=== PATIENT | male | born 1950 | race Caucasian/White ===

== ENCOUNTER → 2021-07-03 | Day surgery (SDC) | payer MEDICARE, MEDICAID ==
[2021-07-03] MEDS: Lidocaine 1% 30 ML SDV INJECT ONE ×2 (12:07)
[2021-07-03 13:08] VITALS: BP 143/77; PULSE 59
== END ==
LOC: CC.SDS 10:48
PROVIDERS: ATTEND Family Medicine
DX: I83.812 Varicose veins of left lower extremity with pain (principal); E78.5 Hyperlipidemia, unspecified; B18.2 Chronic viral hepatitis C; N18.30 Chronic kidney disease, stage 3 unspecified; I12.9 Hypertensive chronic kidney disease with stage 1 through stage 4 chronic kidney disease, or unspecified chronic kidney disease; Z79.82 Long term (current) use of aspirin; Z79.899 Other long term (current) drug therapy

== ENCOUNTER 2021-07-25 21:23 | Inpatient (IN) | payer MEDICARE, MEDICAID ==
[2021-07-25] MEDS ORDERED: Acetaminophen 500 MG Tab PO ONE (21:50)
[2021-07-25] MEDS ORDERED: Sodium Chloride 0.9% 1,000 ML IV SCH (22:00)
[2021-07-25 22:06] LABS: CHLORIDE,CL 102 mEq/L (98-106); SODIUM,NA 139 mEq/L (136-145)
[2021-07-26] MEDS ORDERED: Enoxaparin 40 MG/0.4 ML Syringe SUBCUT SCH (00:30)
[2021-07-26] MEDS ORDERED: REMDESIVIR 200 MG in Sodium Chloride 0.9% 250 ML IV ONE (00:46)
[2021-07-26] MEDS ORDERED: Metoprolol Tartrate 5 MG/5 ML SDV IVPUSH ONE (01:10)
[2021-07-26] MEDS: Albuterol/Ipratropium 3.0-0.5 MG/3 ML Neb Soln NEB SCH ×6 (01:24→21:07)
[2021-07-26] MEDS: Ibuprofen 200 MG Tab PO PRN (01:34)
[2021-07-26] MEDS: Dexamethasone 4 MG Tab PO SCH ×2 (01:34→07:46)
[2021-07-26] MEDS: Pantoprazole 40 MG Tab.CR PO SCH (06:23)
[2021-07-26] MEDS: Multivitamin Tab PO SCH (07:45)
[2021-07-26] MEDS: Gabapentin 300 MG Cap PO SCH ×3 (07:45→21:13)
[2021-07-26] MEDS: Aspirin 325 MG Tab.EC PO SCH (07:46)
[2021-07-26] MEDS: Labetalol 100 MG Tab PO SCH ×2 (07:46→21:14)
[2021-07-26] MEDS ORDERED: Diltiazem 25 MG/5 ML SDV IVPUSH ONE (09:11)
[2021-07-26] MEDS ORDERED: Diltiazem 100 MG in Sodium Chloride 0.9% 100 ML IV SCH ×3 (09:15→11:00)
[2021-07-26] MEDS ORDERED: Iopamidol 755 Mg/ML 100 ML Bottle IVPUSH ONE (09:22)
[2021-07-26] MEDS: Furosemide 40 MG Tab PO SCH (17:21)
[2021-07-26] MEDS ORDERED: amLODIPine 10 MG Tab PO SCH (17:30)
[2021-07-26] MEDS: Enoxaparin 40 MG/0.4 ML Syringe SUBCUT SCH (21:08)
[2021-07-26] MEDS: atorvaSTATin 10 MG Tab PO SCH (21:13)
[2021-07-26] MEDS: REMDESIVIR 100 MG in Sodium Chloride 0.9% 100 ML IV SCH (21:14)
[2021-07-27] MEDS: Albuterol/Ipratropium 3.0-0.5 MG/3 ML Neb Soln NEB SCH ×6 (00:12→19:51)
[2021-07-27] MEDS: Pantoprazole 40 MG Tab.CR PO SCH (06:19)
[2021-07-27] MEDS: Labetalol 100 MG Tab PO SCH ×2 (07:38→19:50)
[2021-07-27] MEDS: Aspirin 325 MG Tab.EC PO SCH (07:38)
[2021-07-27] MEDS: Dexamethasone 4 MG Tab PO SCH ×2 (07:39→09:51)
[2021-07-27] MEDS: Multivitamin Tab PO SCH (07:39)
[2021-07-27] MEDS: Furosemide 40 MG Tab PO SCH ×2 (07:39→15:55)
[2021-07-27] MEDS: Gabapentin 300 MG Cap PO SCH ×3 (07:40→19:50)
[2021-07-27] MEDS: cefTRIAXone 1 GM Vial IVPUSH SCH (09:51)
[2021-07-27] MEDS: Budesonide 0.5 MG/2 ML Neb Susp NEB SCH ×2 (09:52→19:52)
[2021-07-27] MEDS: Cholecalciferol (Vitamin D3) 25 MCG Tab PO SCH (09:52)
[2021-07-27] MEDS: Diltiazem 120 MG Cap.CD PO SCH (09:52)
[2021-07-27] MEDS ORDERED: Diltiazem 25 MG/5 ML SDV IVPUSH ONE (13:38)
[2021-07-27] MEDS: Sodium Chloride 0.9% 1,000 ML IV SCH (14:20)
[2021-07-27] MEDS ORDERED: Aspirin 81 MG Tab.Chew PO ONE (16:38)
[2021-07-27] MEDS ORDERED: Alum Hydrox/Mag Hydrox/Simeth 30 ML, Lidocaine 2% 15 ML PO STA ×2 (16:42)
[2021-07-27] MEDS ORDERED: Morphine 4 MG/ML VIAL IVPUSH ONE (16:46)
[2021-07-27] MEDS ORDERED: Aspirin 81 MG Tab.Chew ONE (17:02)
[2021-07-27] MEDS ORDERED: Aluminum Hydroxide/Magnesium Hydroxide/Simethicone Susp 30 ML Cup ONE (17:09)
[2021-07-27] MEDS ORDERED: Lidocaine 2% Viscous Solution 15 ML UD ONE (17:11)
[2021-07-27] MEDS: Enoxaparin 40 MG/0.4 ML Syringe SUBCUT SCH (19:49)
[2021-07-27] MEDS: atorvaSTATin 10 MG Tab PO SCH (19:50)
[2021-07-27] MEDS: REMDESIVIR 100 MG in Sodium Chloride 0.9% 100 ML IV SCH (19:51)
[2021-07-28] MEDS: Albuterol/Ipratropium 3.0-0.5 MG/3 ML Neb Soln NEB SCH ×6 (00:33→19:29)
[2021-07-28] MEDS: Sodium Chloride 0.9% 1,000 ML IV SCH ×2 (04:31→19:15)
[2021-07-28] MEDS: Pantoprazole 40 MG Tab.CR PO SCH (07:11)
[2021-07-28] MEDS: Aspirin 325 MG Tab.EC PO SCH (07:36)
[2021-07-28] MEDS: Cholecalciferol (Vitamin D3) 25 MCG Tab PO SCH (07:36)
[2021-07-28] MEDS: Furosemide 40 MG Tab PO SCH ×2 (07:37→16:40)
[2021-07-28] MEDS: cefTRIAXone 1 GM Vial IVPUSH SCH (07:37)
[2021-07-28] MEDS: Multivitamin Tab PO SCH (07:37)
[2021-07-28] MEDS: Dexamethasone 4 MG Tab PO SCH (07:37)
[2021-07-28] MEDS: Gabapentin 300 MG Cap PO SCH ×3 (07:37→19:29)
[2021-07-28] MEDS: Budesonide 0.5 MG/2 ML Neb Susp NEB SCH ×2 (07:37→19:30)
[2021-07-28] MEDS: Labetalol 100 MG Tab PO SCH ×2 (07:51→19:29)
[2021-07-28] MEDS: Diltiazem 120 MG Cap.CD PO SCH (07:51)
[2021-07-28] MEDS: atorvaSTATin 10 MG Tab PO SCH (19:29)
[2021-07-28] MEDS: REMDESIVIR 100 MG in Sodium Chloride 0.9% 100 ML IV SCH (19:30)
[2021-07-28] MEDS: Ibuprofen 200 MG Tab PO PRN (19:30)
[2021-07-28] MEDS: Enoxaparin 40 MG/0.4 ML Syringe SUBCUT SCH (19:30)
[2021-07-28] MEDS: LORazepam 2 MG/ML Syringe IVPUSH PRN (22:35)
[2021-07-29] MEDS: Albuterol/Ipratropium 3.0-0.5 MG/3 ML Neb Soln NEB SCH ×6 (00:42→19:44)
[2021-07-29] MEDS: Pantoprazole 40 MG Tab.CR PO SCH (07:17)
[2021-07-29] MEDS: Budesonide 0.5 MG/2 ML Neb Susp NEB SCH ×2 (07:31→19:22)
[2021-07-29] MEDS: Cholecalciferol (Vitamin D3) 25 MCG Tab PO SCH (07:33)
[2021-07-29] MEDS: Aspirin 325 MG Tab.EC PO SCH (07:33)
[2021-07-29] MEDS: Labetalol 100 MG Tab PO SCH ×2 (07:33→19:21)
[2021-07-29] MEDS: Gabapentin 300 MG Cap PO SCH ×3 (07:33→19:22)
[2021-07-29] MEDS: Dexamethasone 4 MG Tab PO SCH (07:33)
[2021-07-29] MEDS: Diltiazem 120 MG Cap.CD PO SCH (07:33)
[2021-07-29] MEDS: Multivitamin Tab PO SCH (07:33)
[2021-07-29] MEDS: cefTRIAXone 1 GM Vial IVPUSH SCH (07:33)
[2021-07-29] MEDS: Furosemide 40 MG Tab PO SCH ×2 (07:33→15:50)
[2021-07-29 13:49] LABS: BICARBONATE,ARTERIAL 20.8 mm/L (22.0-26.0); O2 DELIVERY DEVICE HI FLOW NASAL CANNU; O2 SATURATION ARTERIAL 93 % (95-98); PCO2 ARTERIAL 31 mm/Hg0 (35-45); PO2 ARTERIAL 62 mm/Hg (80-100)
[2021-07-29 13:50] LABS: BASE EXCESS ARTERIAL -3.4 (-2.0-3.0)
[2021-07-29] MEDS: Sodium Chloride 0.9% 1,000 ML IV SCH (15:50)
[2021-07-29] MEDS: atorvaSTATin 10 MG Tab PO SCH (19:22)
[2021-07-29] MEDS: Enoxaparin 40 MG/0.4 ML Syringe SUBCUT SCH (19:22)
[2021-07-29] MEDS: REMDESIVIR 100 MG in Sodium Chloride 0.9% 100 ML IV SCH (19:23)
[2021-07-29] MEDS: Ibuprofen 200 MG Tab PO PRN (19:25)
[2021-07-29] MEDS ORDERED: diphenhydrAMINE 50 MG/ML SDV IVPUSH PRN (20:26)
[2021-07-30] MEDS: Albuterol/Ipratropium 3.0-0.5 MG/3 ML Neb Soln NEB SCH ×4 (00:55→11:09)
[2021-07-30] MEDS ORDERED: Haloperidol Lactate 5 MG/ML SDV IM STA (06:09)
[2021-07-30] MEDS: Pantoprazole 40 MG Tab.CR PO SCH (06:15)
[2021-07-30] MEDS ORDERED: Diltiazem 180 MG Cap.CD PO SCH (08:00)
[2021-07-30] MEDS: cefTRIAXone 1 GM Vial IVPUSH SCH (08:12)
[2021-07-30] MEDS: Cholecalciferol (Vitamin D3) 25 MCG Tab PO SCH (08:13)
[2021-07-30] MEDS: Labetalol 100 MG Tab PO SCH (08:13)
[2021-07-30] MEDS: Dexamethasone 4 MG Tab PO SCH (08:13)
[2021-07-30] MEDS: Aspirin 325 MG Tab.EC PO SCH (08:13)
[2021-07-30] MEDS: Multivitamin Tab PO SCH (08:13)
[2021-07-30] MEDS: Gabapentin 300 MG Cap PO SCH (08:13)
[2021-07-30 08:14] VITALS: PULSE 111
[2021-07-30] MEDS: Furosemide 40 MG Tab PO SCH (08:14)
[2021-07-30 08:44] VITALS: BP 128/83
[2021-07-30] MEDS ORDERED: Haloperidol Lactate 5 MG/ML SDV IVPUSH ONE (08:53)
[2021-07-30] MEDS: LORazepam 2 MG/ML Syringe IVPUSH PRN (09:00)
[2021-07-30] MEDS: Budesonide 0.5 MG/2 ML Neb Susp NEB SCH (09:08)
== END 2021-07-30 12:50 | DRG 177 ==
LOC: CC.ED 21:23 → CC.MS 23:20 → UNDOADMIN 23:20 → CC.MS 23:21
PROVIDERS: ADMIT Nurse Practitioner Family; ATTEND Family Medicine
PROC: XW033E5 Introduction of Remdesivir Anti-infective into Peripheral Vein, Percutaneous Approach, New Technology Group 5 (ICD-10-PCS; principal; 2021-07-26)
PROC: 3E0DX3Z Introduction of Anti-inflammatory into Mouth and Pharynx, External Approach (ICD-10-PCS; 2021-07-26)
PROC: 5A0955A Assistance with Respiratory Ventilation, Greater than 96 Consecutive Hours, High Flow/Velocity Cannula (ICD-10-PCS; 2021-07-26)
DX: U07.1 COVID-19 (principal); J12.82 Pneumonia due to coronavirus disease 2019; H91.91 Unspecified hearing loss, right ear; R45.1 Restlessness and agitation; H54.7 Unspecified visual loss; E78.00 Pure hypercholesterolemia, unspecified; Z95.828 Presence of other vascular implants and grafts; M19.90 Unspecified osteoarthritis, unspecified site; I10 Essential (primary) hypertension; Z86.19 Personal history of other infectious and parasitic diseases; M10.9 Gout, unspecified; Z79.899 Other long term (current) drug therapy; R33.9 Retention of urine, unspecified; I48.91 Unspecified atrial fibrillation; Z95.5 Presence of coronary angioplasty implant and graft; Z79.82 Long term (current) use of aspirin
CPT/HCPCS: 36415; 36600; 51702; 71045; 71260; 80053; 82248; 82803; 83605; 83690; 83880; 84145; 84484; 85025; 85379; 86140; 93005; 93010; 94640; 99285-25; A9270-GY; J0696; J1200; J1630; J1650; J2060; J2270; J3360; J3490; J7030; J7050; J7620-GY; J8540; Q9967; U0002